=== PATIENT | female | born 1960 | race Caucasian/White ===

== ENCOUNTER 2016-09-24 03:15 | Emergency (ER) | payer SELFPAY ==
--- NOTE | 2016-09-24 04:20 | Emergency Department Report ---
HPI - General Chief Complaint: Earache Time Seen by Provider: 09/24/16 04:00 - HPI HPI: Patient complains, headache and sore throat. This started last week. Patient rates her pain a 9 /10 throbbing and aching. Denies any nausea or vomiting. Denies fever or chills. Denies any medical problems and not taking any medication. Denies drooling. She is also c/o earache to both ear.OTC pain meds without relief. BP 156/100 and denies h/o HBP. Denies cough or sob. Denies cp. Denies dizziness or changes in vision. ED Past Medical Hx - Past Medical History Previous Medical History?: No - Surgical History Past Surgical History?: Yes Additional Surgical History: Hysterectomy - Family History Family history: no significant - Social History Smoking Status: Current Every Day Smoker Substance Use Type: None - Medications Home Medications: Home Medications Medication Instructions Recorded Confirmed Last Taken Type Acetaminophen [Non-Aspirin Pain 500 mg PO Q8H PRN #15 tablet 09/24/16 Unknown Rx Relief] Penicillin Vk [Veetids TAB] 250 mg PO Q8H #60 tablet 09/24/16 Unknown Rx ED Review of Systems ROS: Stated complaint: SORE THROAT/EAR PAIN Other details as noted in HPI Comment: All other systems reviewed and negative Constitutional: no symptoms reported Eyes: denies: eye pain, eye discharge, vision change ENT: ear pain, throat pain. denies: congestion Respiratory: no symptoms reported Cardiovascular: denies: chest pain, palpitations, edema, syncope Gastrointestinal: denies: abdominal pain, nausea, vomiting, diarrhea Musculoskeletal: denies: back pain, joint swelling, arthralgia, myalgia Skin: denies: rash Neurological: denies: headache, weakness, numbness, paresthesias, confusion, abnormal gait, vertigo Physical Exam - Physical Exam Vital Signs: Vital Signs 09/24/16 09/24/16 03:20 03:23 Temperature 98.7 F 98.7 F Pulse Rate 80 80 Respiratory 18 18 Rate Blood Pressure 156/100 Blood Pressure 156/100 [Right] O2 Sat by Pulse 97 97 Oximetry Vital Signs 09/24/16 09/24/16 09/24/16 03:20 03:23 04:31 Temperature 98.7 F 98.7 F Pulse Rate 80 80 Respiratory 18 18 Rate Blood Pressure 156/100 Blood Pressure 140/92 [Left] Blood Pressure 156/100 [Right] O2 Sat by Pulse 97 97 Oximetry General: This is a Female well-nourished, well-developed . In No acute distress Physical Exam: Head: Normocephalic atraumatic Mouth: Moist, Positive tonsillar erythema with enlargement @ 1+. No exudate Uvula is midline and oral airway is patent. No facial swelling. No peritonsillar abscesses. No drooling Nose: NL mucosa. Maxillary and frontal sinuses nontender to palpate Neck: Supple, no C-spine tenderness, no tracheal deviation. Nontender to palpate. positive anterior cervical adenopathy Ears: Bilateral TMs congested without erythema. Bilateral EAC without any redness swelling or drainage. Abdomen: Soft, nontender to palpate in all quadrants, normal bowel sounds in all quadrant and negative CVA tenderness bilaterally. Back: No vertebral or paraspinal tenderness. No saddle anesthesia. Patient able to ambulate without any difficulties. Negative SLR bilaterally. Neurological: GCS of 15, alert and oriented 3. Speech is clear and fluid. Normal gait. No motor or sensory deficit. Normal reflexes. No facial drooping. No pronator drift and negative Romberg. Eyes: Bilateral pupils equal and reactive to light, bilateral EOM intact. Bilateral sclera and conjunctiva without injection. Normal accommodation. No nystagmus Lungs: Clear to auscultate bilaterally no rhonchi wheezes or rales. Normal work of breathing extremity; No CCE. +2 pulses. No neurovascular compromise Cardiovascular: S1-S2, regular rate rhythm. No murmurs. Skin: clean Dry and intact no rash no lesions Psych: Normal mood and behavior ED Course Vital Signs 09/24/16 09/24/16 03:20 03:23 Temperature 98.7 F 98.7 F Pulse Rate 80 80 Respiratory 18 18 Rate Blood Pressure 156/100 Blood Pressure 156/100 [Right] O2 Sat by Pulse 97 97 Oximetry Vital Signs 09/24/16 09/24/16 09/24/16 03:20 03:23 04:31 Temperature 98.7 F 98.7 F Pulse Rate 80 80 Respiratory 18 18 Rate Blood Pressure 156/100 Blood Pressure 140/92 [Left] Blood Pressure 156/100 [Right] O2 Sat by Pulse 97 97 Oximetry - Reevaluation(s) Reevaluation #1: 09/24/16 04:36 Patient given tylenol # 3 2 tabblets in ED for sore throat and headache. ED Medical Decision Making - Lab Data Strep negative and CX pending - Medical Decision Making ED Course: Patient complained of Sore throat, Headache and earache. Patient found to have tonsillitis, headache and otalgia. Strep test negative and CX pending. Patient BP stable. She was given Tylenol #3 2 tabs in ed for pain. I explained DX and treatment plans. She voiced understanding. Patient do- ischarged home with friend with prescription for Tylenol and pen VK and to follow up at [facility] as she does not have a PCP. Critical care attestation.: If time is entered above; I have spent that time in minutes in the direct care of this critically ill patient, excluding procedure time. ED Disposition Clinical Impression: Otalgia of both ears Acute tonsillitis Qualifiers: Pharyngitis/tonsillitis etiology: unspecified etiology Qualified Code(s): J03.90 - Acute tonsillitis, unspecified Headache Qualifiers: Headache type: unspecified Headache chronicity pattern: acute headache Intractability: not intractable Qualified Code(s): R51 - Headache Disposition: DC-01 TO HOME OR SELFCARE Is pt being admited?: No Does the pt Need Aspirin: No Condition: Stable Instructions: Acute Headache (ED), Tonsillitis (ED), Earache (ED) Additional Instructions: Please Take antibiotic as prescribed Folow-up at [facility] for Primary care in 2 days Gargle with warm salt water Prescriptions: Acetaminophen [Non-Aspirin Pain Relief] 500 mg PO Q8H PRN #15 tablet PRN Reason: SORE THROAT AND HEADACHE Penicillin Vk [Veetids TAB] 250 mg PO Q8H #60 tablet Referrals: [facility] [Outside] - 09/26/16 Forms: Work/School Release Form(ED) Print Language: NEPALI
[2016-09-24] MEDS ORDERED: MOTRIN PO ONE (04:27)
[2016-09-24] MEDS ORDERED: TYLENOL #3 PO ONE (04:28)
[2016-09-24 04:32] VITALS: BP 140/92
== END 2016-09-24 04:57 | disposition home or self-care (01) ==
LOC: ED 03:15
DX: J03.90 Acute tonsillitis, unspecified (principal); R51 Headache; H92.03 Otalgia, bilateral; F17.200 Nicotine dependence, unspecified, uncomplicated
CPT/HCPCS: 87116; 87430; 99282